=== PATIENT | female | born 1965 | race Caucasian/White ===

== ENCOUNTER 2018-01-15 11:22 | Inpatient (IN) | payer BC ==
[~2018-01-15] VITALS: Ht 154.9 cm; Wt 65.7 kg
[~2018-01-15 11:22] MED LIST: ADVA250A INH; DARV PO; LEVO.05 PO; TAB-TAB PO; [UNRECOGNIZED DRUG - OTHER] PO; [UNRECOGNIZED DRUG - OTHER] PO
[2018-01-15] MEDS ORDERED: PROPOFOL 500 MG/50 ML BTL IV ONE (11:23)
[2018-01-15] MEDS ORDERED: ACETAMINOPHEN 1000 MG/100 ML 100 ML IV ONE (11:44)
[2018-01-15] MEDS ORDERED: LACTATED RINGER'S 1000 ML INJ 1,000 ML ONE (11:45)
[2018-01-15] MEDS ORDERED: VANCOMYCIN HCL 1000 MG VIAL ONE (11:45)
[2018-01-15] MEDS ORDERED: MIDAZOLAM HCL 2 MG/2 ML VIAL ONE (12:53)
[2018-01-15] MEDS ORDERED: SODIUM CHLORIDE 0.9% 20 ML VIAL ONE (13:03)
[2018-01-15] MEDS ORDERED: ceFAZolin INJ 1,000 MG VIAL ONE (13:04)
[2018-01-15] MEDS ORDERED: LIDOCAINE 1%/EPINEPHrine 1:100,000 SOLN 50 ML VIAL ONE (13:20)
[2018-01-15] MEDS ORDERED: oxyCODONE/ACETAMINOPHEN 5 MG/325 MG TAB ONE ×2 (15:04→17:41)
[2018-01-15] MEDS ORDERED: LIDOCAINE 1%/EPINEPHrine 1:100,000 SOLN 30 ML VIAL ONE (16:32)
[2018-01-15] MEDS ORDERED: MIDAZOLAM HCL 5 MG/5 ML VIAL ONE (16:45)
--- NOTE | 2018-01-15 20:08 | RADRPT ---
EXAM DATE/TIME: 01/15/2018 19:43 [facility] COMPARISON: No previous studies available for comparison. INDICATIONS : Left sided chest tube placement. Evaluate for pneumothorax. MEDICAL HISTORY : Carcinoma, breast. SURGICAL HISTORY : Infusa-port. ENCOUNTER: Initial ACUITY: 1 day PAIN SCORE: 7/10 LOCATION: Left chest FINDINGS: Expiratory view the chest. Left chest drainage catheter with pigtail loop at the left apex. No pneu mothorax seen. Right subclavian Wzahdk-i-Dxnh catheter tip projects in the right atrium. Ill-define d area of infiltrate is seen in the retrocardiac left lower lung without air bronchograms. Both josé luis diaphragms are well delineated. CONCLUSION: No evidence of pneumothorax. Left chest drainage catheter at the left apex. Burke Monteiro MD on January 15, 2018 at 20:06 Board Certified Radiologist. This report was verified electronically.
[2018-01-15 20:28] LABS: HEMATOCRIT 34.4 % (35.0-46.0); HEMOGLOBIN 11.5 GM/DL (11.6-15.3)
[2018-01-15 20:30] VITALS: BP 127/68; PULSE 74; RESP 18; TEMP 97.9; O2SAT 97
[2018-01-15] MEDS: ONDANSETRON HCL 4 MG/2 ML VIAL IV PUSH PRN (21:22)
[2018-01-15] MEDS: LACTATED RINGER'S 1000 ML INJ 1,000 ML IV SCH ×2 (21:23→22:15)
[2018-01-15] MEDS ORDERED: LORazepam 2 MG/ML VIAL IV PRN (22:15)
[2018-01-15] MEDS ORDERED: MORPHINE SULFATE 4 MG/ML INJ IV PRN (22:15)
[2018-01-15] MEDS: oxyCODONE/ACETAMINOPHEN 5 MG/325 MG TAB PO PRN (22:34)
--- NOTE | 2018-01-15 23:34 | MP ---
cc: Arthur Mobley MD,Julio Queen MD, MD, Alvaro R MD DATE OF OPERATION: 01/15/2018 PROCEDURE: Ajhypm-T-Sdqn placement with intraoperative use of fluoroscopy PREOPERATIVE DIAGNOSIS: Locally advanced invasive ductal carcinoma of the breast, with need for intravenous chemotherapy. POSTOPERATIVE DIAGNOSIS: Locally advanced invasive ductal carcinoma of the breast, with need for intravenous chemotherapy. ANESTHESIA: TIVA. SURGEON: Arthur Mobley MD ESTIMATED BLOOD LOSS: 10 mL FLUIDS: 500 mL crystalloid COMPLICATIONS: Pneumothorax postoperatively DRAINS: None. SPECIMEN: None. PROCEDURE IN DETAIL: The patient was taken to the operating room and placed on the operating table in the supine position. After an adequate level of IV sedation was begun, the chest and neck were prepped and draped bilaterally. Timeout was taken, confirming the correct patient, site and procedure to be performed. The patient was placed in Trendelenburg position and the left subclavian region infiltrated with local anesthetic. Four separate passes were made to obtain access to the left subclavian vein. The vein was accessed on 1 occasion, but the wire could not be threaded. The subclavian artery was entered on 2 additional passes and the needle withdrawn and pressure held over the area for approximately 2 minutes each time. Attention was then turned to the right side, where the right subclavian region was infiltrated with local anesthetic. An 18-gauge needle was passed into the subclavian vein on the third attempt and a guidewire was able to be passed into the superior vena cava. This was confirmed under real-time fluoroscopy. When this had been completed, the patient had port pocket created by infiltrating the area below the exit site of the wire with local anesthetic. An incision was made and the port pocket created with electrocautery. The catheter was brought through the short tunnel and an introducer and sheath passed over the guidewire. The entire assembly was seen to be pass into the superior vena cava in a smooth curve. The introducer and guidewire were removed and the catheter passed down the sheath. The sheath was peeled away and the catheter withdrawn to a level, such that the tip was in the distal superior vena cava. The catheter was then trimmed to length and the port fixed to the catheter and the hub snapped over the connection. The port was placed into the pocket and secured to the pocket with two 2-0 Prolene sutures. With hemostasis assured, the port pocket was closed with interrupted 3-0 Vicryl suture as was the percutaneous puncture site. The skin was closed with 5-0 PDS in a running subcuticular fashion. The port was accessed with a Craft needle and good blood return was achieved. The port was re-flushed with 5 mL of 100 units/mL heparinized saline. The incision was dressed with Steri-Strips. The patient was taken back to the recovery room in stable condition. Chest x-ray was taken, which initially demonstrated no evidence of pneumothorax. The patient was complaining of chest pain; however, and an additional chest x-ray demonstrated a small apical pneumothorax on the left. The patient had placement of a 12-Icelandic Cook catheter, with resolution of the pneumothorax. MD GLENN Cheek/SA/ , 10:42 PM , 11:10 PM
[2018-01-16] VITALS: BP 115/65; PULSE 94; RESP 16; TEMP 96.1; O2SAT 98
[2018-01-16] MEDS ORDERED: PREV15CA20 PO (01:58)
[2018-01-16] MEDS ORDERED: CELE10TA PO (01:58)
[2018-01-16] MEDS ORDERED: LEVO.075 PO (01:58)
[2018-01-16 04:00] VITALS: BP 122/67; PULSE 76; RESP 17; TEMP 96.1; O2SAT 98
[2018-01-16] MEDS: LACTATED RINGER'S 1000 ML INJ 1,000 ML IV SCH ×6 (04:39→22:15)
[2018-01-16 04:52] LABS: HEMATOCRIT 32.3 % (35.0-46.0); HEMOGLOBIN 11.2 GM/DL (11.6-15.3)
[2018-01-16] MEDS: LEVOTHYROXINE SODIUM 75 MCG TAB PO SCH (06:27)
[2018-01-16 08:00] VITALS: BP 118/61; PULSE 73; RESP 19; TEMP 97.6; O2SAT 99
[2018-01-16] MEDS: oxyCODONE/ACETAMINOPHEN 5 MG/325 MG TAB PO PRN ×3 (08:00→18:51)
[2018-01-16] MEDS: ONDANSETRON HCL 4 MG/2 ML VIAL IV PUSH PRN ×2 (08:01→14:48)
--- NOTE | 2018-01-16 11:14 | RADRPT ---
EXAM DATE/TIME: 01/16/2018 10:36 [facility] COMPARISON: CHEST SINGLE AP, January 15, 2018, 19:43. INDICATIONS : Pneumothorax. MEDICAL HISTORY : Carcinoma, breast. SURGICAL HISTORY : Infusa-port. ENCOUNTER: Subsequent ACUITY: 1 day PAIN SCORE: 0/10 LOCATION: Bilateral chest FINDINGS: The left lung is well-expanded without evidence of pneumothorax. Minimal left basilar airspace diseas e is noted. Left-sided chest tube is in stable position. Right-sided Xottfl-o-Mjnz catheter is again noted. CONCLUSION: 1. Stable chest with no evidence of pneumothorax. 2. Minimal left basilar airspace disease. Agustin Kimble MD on January 16, 2018 at 11:11 Board Certified Radiologist. This report was verified electronically.
[2018-01-16 12:00] VITALS: BP 116/69; PULSE 66; RESP 19; TEMP 97; O2SAT 98
[2018-01-16] MEDS ORDERED: PILL SPLITTER OTHER PRN (12:00)
[2018-01-16] MEDS: CITALOPRAM HYDROBROMIDE 20 MG TAB PO SCH (12:00)
[2018-01-16] MEDS ORDERED: LORazepam 1 MG TAB PO PRN (12:15)
[2018-01-16 16:00] VITALS: BP 124/66; PULSE 75; RESP 20; TEMP 97.1; O2SAT 97
--- NOTE | 2018-01-16 16:33 | HHI.PR ---
Subjective Subjective Notes feels well Objective Vitals/I&O Vital Signs Date Time Temp Pulse Resp B/P (MAP) Pulse Ox O2 Delivery O2 Flow Rate FiO2 01/16/18 12:00 97.0 66 19 116/69 (85) 98 Labs Laboratory Tests Test 01/15/18 20:07 01/16/18 04:10 Hemoglobin 11.5 11.2 Hematocrit 34.4 32.3 Cardiovascular: Regular Lungs: Clear Abdomen: Non-distended, Non-tender A/P Assessment and Plan 52yo female s/p infusiport, Left PTX, stable with chest tube. CXR no PTX, will place to water seal, get CXR in AM. Fred Lizama MD Jan 16, 2018 16:33
[2018-01-16 20:30] VITALS: BP 117/68; PULSE 68; RESP 16; TEMP 96.6; O2SAT 96
[2018-01-17 00:32] VITALS: BP 116/67; PULSE 72; RESP 16; TEMP 96; O2SAT 93
--- NOTE | 2018-01-17 04:14 | RADRPT ---
EXAM DATE/TIME: 01/17/2018 03:37 [facility] COMPARISON: No previous studies available for comparison. INDICATIONS : Pneumothorax. MEDICAL HISTORY : Carcinoma, breast. SURGICAL HISTORY : Infusaport. ENCOUNTER: Initial ACUITY: 2 days PAIN SCORE: Non-responsive. LOCATION: Left chest FINDINGS: Small caliber left chest tube again seen. No perceptible pneumothorax. There is mild bibasilar atelec tasis. No large effusion. Heart size stable, upper limits of normal. Right subclavian Wnwkfn-j-Bych catheter with tip in the ri ght atrium again noted. CONCLUSION: No significant change. Left chest tube remains in place. No pneumothorax. Mild bibasilar atelectasis. Bharath Kunz MD on January 17, 2018 at 4:12 Board Certified Radiologist. This report was verified electronically.
[2018-01-17] MEDS: LACTATED RINGER'S 1000 ML INJ 1,000 ML IV SCH ×5 (04:27→22:15)
[2018-01-17] MEDS: LEVOTHYROXINE SODIUM 75 MCG TAB PO SCH (04:27)
[2018-01-17 08:00] VITALS: BP 134/79; PULSE 76; RESP 20; TEMP 96.9; O2SAT 96
[2018-01-17] MEDS: CITALOPRAM HYDROBROMIDE 20 MG TAB PO SCH (08:54)
[2018-01-17] MEDS: oxyCODONE/ACETAMINOPHEN 5 MG/325 MG TAB PO PRN ×4 (08:54→18:49)
--- NOTE | 2018-01-17 10:36 | HHI.PR ---
Subjective Subjective Notes c/o pain yesterday ct placed back to sxn, on 2L o2 sats 93-96% Objective Vitals/I&O Vital Signs Date Time Temp Pulse Resp B/P (MAP) Pulse Ox O2 Delivery O2 Flow Rate FiO2 01/17/18 08:00 96.9 76 20 134/79 (97) 96 Lungs: Clear (left chest tube c/d/i, no leak, right port c/d/i) A/P Assessment and Plan s/p port, ptx PLAN chest tube back to h2o seal, check cxr if sats drop, increased pain or in am wean o2 oob is pain control po Robe Abraham MD Jan 17, 2018 10:36
[2018-01-17] MEDS: ONDANSETRON HCL 4 MG/2 ML VIAL IV PUSH PRN (11:12)
[2018-01-17 12:00] VITALS: BP 123/70; PULSE 71; RESP 19; TEMP 97; O2SAT 97
[2018-01-17 16:00] VITALS: BP 113/62; PULSE 89; RESP 20; TEMP 96.9; O2SAT 96
[2018-01-17 20:00] VITALS: BP 112/66; PULSE 66; RESP 18; TEMP 96.6; O2SAT 97
[2018-01-18] VITALS: BP 134/78; PULSE 70; RESP 18; TEMP 96.8; O2SAT 98
[2018-01-18] MEDS: LEVOTHYROXINE SODIUM 75 MCG TAB PO SCH (06:02)
[2018-01-18] MEDS: LACTATED RINGER'S 1000 ML INJ 1,000 ML IV SCH ×2 (06:03)
--- NOTE | 2018-01-18 06:28 | RADRPT ---
EXAM DATE/TIME: 01/18/2018 05:09 [facility] COMPARISON: CHEST SINGLE AP, January 17, 2018, 3:37. INDICATIONS : Short of breath, post port placement, evaluate pneumothorax and chest tube on left MEDICAL HISTORY : Carcinoma, breast. SURGICAL HISTORY : infusaport, chest tube ENCOUNTER: Subsequent ACUITY: 3 days PAIN SCORE: 10/10 LOCATION: Bilateral chest FINDINGS: Single portable frontal view of the chest shows a left thoracostomy tube in the apex. No pneumothorax . Right-sided power port. Bibasilar atelectasis. No effusions. Heart normal in size. CONCLUSION: No pneumothorax. Bibasilar atelectasis. Burke Lentz Jr., MD on January 18, 2018 at 6:26 Board Certified Radiologist. This report was verified electronically.
[2018-01-18 08:00] VITALS: BP 157/85; PULSE 70; RESP 19; TEMP 97.3; O2SAT 97
[2018-01-18] MEDS: oxyCODONE/ACETAMINOPHEN 5 MG/325 MG TAB PO PRN (08:04)
[2018-01-18] MEDS: CITALOPRAM HYDROBROMIDE 20 MG TAB PO SCH (08:05)
[2018-01-18] MEDS ORDERED: ZOFR4TAB PO (11:30)
[2018-01-18] MEDS ORDERED: OXYC1TAB63 PO (11:39)
[2018-01-18 12:00] VITALS: BP 143/84; PULSE 69; RESP 19; TEMP 96.7; O2SAT 100
--- NOTE | 2018-01-18 12:01 | HHI.DS ---
Discharge Summary Admission Date Jan 15, 2018 at 19:12 Discharge Date: Jan 18, 2018 Admitting Diagnosis s/p port placement at outpatient surgery center with post pneumothorax and pigtail catheter placement Brief History This is a 52 year old female s/p port placement at outpatient surgery center with post pneumothorax and pigtail catheter placement. The patient's chest tube was placed to water seal and a follow up XR was obtained with full expand of the lung. The chest tube was removed without an issue. A follow up XR was stable. She will be DCed home in stable condition and follow up with Dr. Mobley in 3 months. CBC/BMP: 01/16/18 0410 Significant Findings Laboratory Tests Test 01/15/18 20:07 01/16/18 04:10 Hemoglobin 11.5 GM/DL (11.6-15.3) 11.2 GM/DL (11.6-15.3) Hematocrit 34.4 % (35.0-46.0) 32.3 % (35.0-46.0) Pt Condition on Discharge: Good Discharge Disposition: Discharge Home Discharge Instructions DIET: Follow Instructions for: As Tolerated, No Restrictions Ana Gregory/First Mayda TAMEZ Jan 18, 2018 12:01
--- NOTE | 2018-01-18 12:31 | RADRPT ---
EXAM DATE/TIME: 01/18/2018 11:43 [facility] COMPARISON: CHEST SINGLE AP, January 18, 2018, 5:09. INDICATIONS : Post chest tube removal from left side MEDICAL HISTORY : Carcinoma, breast. SURGICAL HISTORY : infusaport ENCOUNTER: Subsequent ACUITY: 3 days PAIN SCORE: 2/10 LOCATION: Bilateral chest FINDINGS: A single view of the chest demonstrates mild basal airspace disease, similar to January 18 exam from [facility] today. Mcgtsf-c-Posd in superior vena cava. Previous left chest tube has been removed without s ignificant pneumothorax. CONCLUSION: 1. Removal of left chest tube without significant pneumothorax. Tom Davis MD on January 18, 2018 at 12:29 Board Certified Radiologist. This report was verified electronically.
[2018-01-18] MEDS ORDERED: MAGNESIUM HYDROXIDE SUSP 30 ML CUP PO PRN (13:00)
[2018-01-18 14:34] VITALS: BP 136/72
== END 2018-01-18 15:23 | disposition home or self-care (01) | DRG 200 ==
LOC: ESDC 11:22 → N07B 19:12 → ESDC 19:13
PROVIDERS: ADMIT Surgery Trauma Surgery; ATTEND Surgery Trauma Surgery
PROC: 05H533Z Insertion of Infusion Device into Right Subclavian Vein, Percutaneous Approach (ICD-10-PCS; 2018-01-15)
PROC: B516ZZA Fluoroscopy of Right Subclavian Vein, Guidance (ICD-10-PCS; 2018-01-15)
PROC: 0W9930Z Drainage of Right Pleural Cavity with Drainage Device, Percutaneous Approach (ICD-10-PCS; 2018-01-15)
PROC: 0JH63WZ Insertion of Totally Implantable Vascular Access Device into Chest Subcutaneous Tissue and Fascia, Percutaneous Approach (ICD-10-PCS; principal; 2018-01-15 13:28)
DX: J95.811 Postprocedural pneumothorax (principal); C77.3 Secondary and unspecified malignant neoplasm of axilla and upper limb lymph nodes; C50.211 Malignant neoplasm of upper-inner quadrant of right female breast; E03.9 Hypothyroidism, unspecified; Z17.0 Estrogen receptor positive status [ER+]; Z88.0 Allergy status to penicillin; Z88.2 Allergy status to sulfonamides; Z80.42 Family history of malignant neoplasm of prostate; Z91.010 Allergy to peanuts; Z91.013 Allergy to seafood; Z91.041 Radiographic dye allergy status
CPT/HCPCS: 32551; 71045; 77001; 85014; 85018; 94150; C1788; J0131; J0690; J2060; J2250; J2405; J3010; J3370; J7120